=== PATIENT | female | born 1995 | race Asian ===

== ENCOUNTER 2018-01-15 18:22 | Emergency (ER) | payer SELFPAY ==
--- NOTE | 2018-01-15 18:28 | ED ---
Psychiatric Complaint - HPI Summary HPI Summary: 22 y/o demarcusamaustin DÍAZ c/o SI thoughts and depression today. Sx not aggravated or alleviated by anything. Pt seen by doctor, called to ED by psychiatrist for concerns of her mental health. 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 Previous attempts - pt states she tried to use a knife. Associated sx: nausea. Pt has been previously admitted for depression. - History Of Current Complaint Hx Obtained From: Patient Timing: Constant Character: Depressed Aggravating Factor(s): Nothing Alleviating Factor(s): Nothing Has Suicidal: Reports: Thoughts - Allergies/Home Medications Allergies/Adverse Reactions: Allergies Allergy/AdvReac Type Severity Reaction Status Date / Time No Known Allergies Allergy Verified 01/15/18 19:07 Home Medications: Home Medications Cetirizine* 01/15/18 [History] Gabapentin CAP(*) 01/15/18 [History] Hydroxyzine HCl 01/15/18 [History] PMH/Surg Hx/FS Hx/Imm Hx Previously Healthy: No Cardiovascular History: Denies: Hx Congestive Heart Failure Respiratory History: Denies: Hx Chronic Obstructive Pulmonary Disease (COPD) - Family History Known Family History: Positive: Unknown - Social History Occupation: Student Lives: Alone Review of Systems Constitutional: Negative Eyes: Negative ENT: Negative Cardiovascular: Negative Respiratory: Negative Gastrointestinal: Negative Genitourinary: Negative Musculoskeletal: Negative Skin: Negative Neurological: Negative Positive: Depressed All Other Systems Reviewed And Are Negative: No Physical Exam - Summary Physical Exam Summary: Appearance: Alert, conversive, nontoxic appearing Skin: Warm, dry, no mottling, no rashes, no contusions HEENT: EOMI, PERRL, moist mucous membranes Neck: No masses on the neck, supple Respiratory: Clear to auscultation, breath sounds present, no rales, no rhonchi , no wheezes Cardiovascular: RRR, pulses are symmetrical in both lower and upper extremities Abdomen: Soft, non-tender Bowel Sounds: Present Musculoskeletal: No CVA tenderness, no obvious deformity, moving all extremities in a grossly normal manner Neurological: A&Ox3, CN II-XII Intact, moving all extremities symmetrically Psychiatric: Flat affect. Triage Information Reviewed: Yes Vital Signs Reviewed: Yes Diagnostics - Laboratory Result Diagrams: 01/15/18 18:42 01/15/18 18:42 Lab Statement: Any lab studies that have been ordered have been reviewed, and results considered in the medical decision making process. - EKG 1 EKG Interpretation: SR @ 68 BPM. Normal QTc, normal axis. Normal ST T Wave. Course/Dx - Course Assessment/Plan: 22 y/o female BIBA for SI thoughts and depression. EKG normal. Pt is medically cleared. Spoke with psychiatry, pt will be transferred to [facility]. Awaiting [facility], pt will be signed out to evening attending, pending dispo. - Differential Dx/Clinical Impression Provider Diagnosis: Depression Discharge - Sign-Out/Discharge Documenting (check all that apply): Sign-Out Patient Signing out patient TO: José Miguel Anne Receiving patient FROM: Belkys Jane - Discharge Plan Referrals: No Primary Care Phys,NOPCP [Primary Care Provider] - - Attestation Statements Document Initiated by Scribe: Yes Documenting Scribe: Young Walters Provider For Whom Scribe is Documenting (Include Credential): Belkys Jane MD Scribe Attestation: Young Guerra, scribed for Belkys Jane MD on 01/15/18 at 2367.
[2018-01-15 18:49] LABS: ABS Basophils 0 10^3/ul (0-0.2); ABS Eosinophils 0.1 10^3/ul (0-0.6); ABS Lymphocytes 2.3 10^3/ul (1.0-4.8); ABS Monocytes 0.4 10^3/ul (0-0.8); ABS Neutrophils 3.9 10^3/ul (1.5-7.7); ABS Nucleated RBC 0 10^3/ul; Eosinophil % 1.8 % (0-6); Hematocrit 41 % (35-47); Mean Corpuscular HGB Conc 34 g/dl (31-36); Mean Corpuscular Hemoglobin 33 pg (27-31); Mean Corpuscular Volume 96 fL (80-97); Mean Platelet Volume 8.5 um3 (7.4-10.4); Nucleated Red Blood Cells % 0.1; Platelet Count 249 10^3/ul (150-450); Red Blood Count 4.26 10^6/ul (4.00-5.40); Red Cell Distribution Width 13 % (10.5-15); White Blood Count 6.8 10^3/ul (3.5-10.8)
[2018-01-15 18:54] LABS: Urine Appearance Cloudy; Urine Blood Negative (Negative); Urine Color Yellow; Urine Ketones Negative (Negative); Urine Protein Negative (Negative); Urine Specific Gravity 1.018 (1.010-1.030); Urine Urobilinogen Negative (Negative)
[2018-01-15 19:06] LABS: EGFR Non-African American 78.6 (>60)
--- NOTE | 2018-01-16 06:00 | ED ---
Progress - Progress Note Progress Note: Pt is a sign-out from Juan Bradshaw MD, from the day shift. Pt had no new issues this shift, and is presently stable and in flex. - Consult/PCP Time Called: 20:15 Course/Dx - Course Course Of Treatment: Patient remained in mental health in stable condition throughout the night completing mental health evaluation. Patient will be signed out to oncoming ER physician Dr. Holland. Discharge - Sign-Out/Discharge Documenting (check all that apply): Sign-Out Patient, Receiving Sign-Out Signing out patient TO: Cele Holland Receiving patient FROM: Juan Bradshaw - Discharge Plan Condition: Stable Referrals: No Primary Care Phys,NOPCP [Primary Care Provider] - - Billing Disposition and Condition Condition: STABLE - Attestation Statements Document Initiated by Scribe: Yes Documenting Scribe: Kiara Webber Provider For Whom Scribe is Documenting (Include Credential): José Miguel Anne MD. Scribe Attestation: Kiara Guerra, alberted for José Miguel Anne MD. on 01/16/18 at 0623. Scribe Documentation Reviewed: Yes Provider Attestation: The documentation as recorded by the scribeKiara accurately reflects the service I personally performed and the decisions made by José Miguel perez MD.
--- NOTE | 2018-01-16 17:19 | ED ---
Progress - Progress Note Progress Note: Patient was received as a sign-out from Dr. Anne at 0700. At 16:34, Dr. Ryan and Dr. Holland reviewed patient's case. Patient will be discharged to home with Dx of adjustment disorder and will follow up as out- patient at [facility]. - Consult/PCP Time Called: 20:15 Course/Dx - Course Course Of Treatment: Patient remained in mental health in stable condition throughout the night completing mental health evaluation. Patient will be signed out to oncoming ER physician Dr. Holland. At 0700, patient was received as sign out from Dr. Anne. At 1634, Dr. Ryan and Dr. Holland reviewed patient's case. Patient will be discharged to home and follow up at [facility]. She was diagnosed with adjustment disorder. - Diagnoses Provider Diagnoses: Adjustment disorder - Provider Notifications Discussed Care Of Patient With: Yordy Ryan Time Discussed With Above Provider: 16:34 Instructed by Provider To: Other - Dr. Ryan and Dr. Holland reviewed patient's case at 1634. Patient will be discharged to home and follow up with [facility]. Discharge - Sign-Out/Discharge Documenting (check all that apply): Patient Departure - discharge - Discharge Plan Condition: Stable Disposition: HOME Patient Education Materials: Stress (ED) Referrals: No Primary Care Phys,NOPCP [Primary Care Provider] - - Billing Disposition and Condition Condition: STABLE Disposition: Home - Attestation Statements Document Initiated by Joseline: Yes Documenting Scribe: Agus Foster Provider For Whom Joseline is Documenting (Include Credential): Cele Holland M.D. Scribe Attestation: Agus Guerra scribed for Cele Holland M.D. on 01/16/18 at 1832. Scribe Documentation Reviewed: Yes Provider Attestation: The documentation as recorded by the Agus brannon accurately reflects the service I personally performed and the decisions made by Cele perez M.D.
[2018-01-16 17:31] VITALS: BP 166/69
== END 2018-01-16 17:28 | disposition home or self-care (01) ==
LOC: ED 18:22
DX: F43.20 Adjustment disorder, unspecified (principal)
CPT/HCPCS: 36415; 80053; 80307; 80320; 80329; 81003; 84443; 84702; 85025; 93005; 99284; G0480